=== PATIENT | male | born 1970 | race Caucasian/White ===

== ENCOUNTER 2020-10-27 12:42 | Inpatient (IN) | payer BC, OTHER ==
[~2020-10-27] VITALS: Ht 182.9 cm; Wt 108.9 kg
[2020-10-27 12:53] VITALS: BP 146/73
[2020-10-27 12:58] LABS: URINE BILIRUBIN NEGATIVE (Negative); URINE BLOOD TRACE (Negative); URINE CLARITY CLEAR; URINE COLOR YELLOW; URINE GLUCOSE-RANDOM* NEGATIVE (Negative); URINE KETONES 2+ (Negative); URINE LEUKOCYTES-REFLEX NEGATIVE (Negative); URINE NITRITE-REFLEX NEGATIVE (Negative); URINE PROTEIN (DIPSTICK) TRACE (Negative); URINE SPECIFIC GRAVITY >= 1.030 (1.005-1.035)
[2020-10-27 13:18] LABS: ABSOLUTE NEUTROPHILS 5.9 thou/uL (1.4-8.2); BASOPHILS 0.2 % (0.0-2.0); EOSINOPHILS 0.3 % (0.0-3.0); HEMATOCRIT 42.7 % (42.0-52.0); HEMOGLOBIN 14.6 gm/dL (14.0-18.0); LYMPHOCYTES 13.1 % (24.0-44.0); MCH 31.2 pg (26.0-34.0); MCHC 34.3 g/dL (28.0-37.0); MONOCYTES 5.3 % (1.0-8.0); PLATELET COUNT 271 thou/uL (150-400); POLYS 81.1 % (36.0-66.0); RBC 4.69 mil/uL (4.50-6.00); RDW 12.6 % (10.5-14.5); WBC 7.2 thou/uL (4.0-11.0)
[2020-10-27 13:33] LABS: CALCIUM 9.2 mg/dL (8.5-10.1); CREATININE 1.2 mg/dL (0.7-1.3)
[2020-10-27 13:39] LABS: ALBUMIN 3.9 g/dL (3.4-5.0); TOTAL PROTEIN 8.1 g/dL (6.4-8.2)
--- NOTE | 2020-10-27 14:56 | EKG ---
[address] [place] [address] ELECTROCARDIOGRAM REPORT Name: MARIEDEANDRE Em Room #: REG Avani#: [id number] Admission: 10/27/20 Attend Phys: Discharge: Date of : 70 Report #: [id number] [facility] ED Test Date: 2020-10-27 Test Time: 13:28:09 Pat Name: DEANDRE SALAZAR Department: Room: Gender: M Real Estate Transaction Coordinator: : 1970 Requested By: Danielle Norwood Order Number: [id number] MD: Raúl Corona Measurements Intervals [place] Rate: 52 P: 46 RI: 178 QRS: 21 QRSD: 89 T: 31 QT: 430 QTc: 400 Interpretive Statements Sinus rhythm Abnormal R-wave progression, early transition No previous ECG available for comparison Electronically Signed On 10-27-2020 14:56:00 CDT by Raúl Corona [email or web address] <ELECTRONICALLY SIGNED> By: Raúl Corona MD, [facility] 10/27/20 1456 1328 1328 Raúl Corona MD, FACC /EPI
[2020-10-27 15:29] VITALS: BP 146/73
--- NOTE | 2020-10-27 16:02 | NUR ---
ITCHING S/P ROCEPHIN INFUSION
[2020-10-27 17:20] VITALS: BP 112/70
--- NOTE | 2020-10-27 18:08 | NUR ---
ASSUMED PT CARE FROM DAY NURSE AT 1720. PT IS ALERT & ORIENTED X4. PT HAS IV SITE ON R AC AND L HAND. CALLED DR TO CLARIFY DIET, IV FLUID AND MEDICATION ORDER AND PLACED AN ORDERED PER MD REQUEST. PT ON THE BED, BED ON THE LOWEST POSITION, SIDE RAILS UP, CALL LIGHT WITHIN REACH. WILL CONTINUE TO MONITOR PT. FOLLOW POC. ENDORSE NIGHT NURSE.
[2020-10-27 19:58] VITALS: BP 100/63
--- NOTE | 2020-10-28 07:37 | NUR ---
RECEIVED CARE OF THIS PATIENT AT 1900. PATIENT ALERT AND ORIENTED X4. UP WITH SBA ONLY. IV PATENT IN LH WITH FLUIDS INFUSING. NPO SINCE NM FOR SURGERY TODAY. SLEPT MOST OF NIGHT. DENIES PAIN. C/O NAUSEA, WANTED TO WAIT UNTIL AFTER EATING TO SEE IF HE NEEDED MED FOR IT. DID NOT NEED IT.
[2020-10-28 07:57] LABS: HEMATOCRIT 40.8 % (42.0-52.0); HEMOGLOBIN 13.6 gm/dL (14.0-18.0); MCH 30.7 pg (26.0-34.0); MCHC 33.4 g/dL (28.0-37.0); MCV 91.7 fL (80.0-100.0); RBC 4.44 mil/uL (4.50-6.00); WBC 7.7 thou/uL (4.0-11.0)
[2020-10-28 07:59] VITALS: BP 114/76
[2020-10-28 08:13] LABS: CALCIUM 8.2 mg/dL (8.5-10.1); CREATININE 0.9 mg/dL (0.7-1.3); POTASSIUM 3.9 mmol/L (3.5-5.1); TOTAL BILIRUBIN 0.7 mg/dL (0.2-1.0); TOTAL PROTEIN 6.4 g/dL (6.4-8.2)
--- NOTE | 2020-10-28 12:32 | NUR ---
Received awake on bed. Due medications given as prescribed. On room air. Vital signs stable. On nothing per orem- pt informed and aware; mouth swabs provided. On MS, not on telemetry; no complains and signs of chest pain, crushing sensation and heaviness. Continent of bowel and bladder, able to go to the toilet independently. With D51/2NS at 125cc/hr, infusing well at L hand; with SL at R AC. Pt scheduled for lap nancy today, verified with pre-op nurse- pt scheduled at 1600- pt updated. Pt seen and examined by Dr Templeton- IV changed to LR as ordered. Complained of pain, due PRN pain meds given as prescribed. Visited by his , update given. Pre-op nurse called this PM, procedure might be earlier than scheduled; report given- patient and updated re: change in time. To continue monitoring patient.
--- NOTE | 2020-10-28 13:03 | NUR ---
ASSESSMENT: CM REVIEWED CHART AND MET WITH PATIENT AND HIS AT THE BEDSIDE. PT IS ALERT AND ORIENTED X4. PT WAS ADMITTED WITH ABDOMINAL PAIN AND IS TO HAVE A LAP EMELY. PT REPORTS LIVING IN A HOUSE WITH HIS . PT REPORTS HAVING A FEW STEPS TO ENTER BUT REPORTS BEING FULLY INDEPENDENT WITH ADLS AND AMBULATION. PT DENIES HAVING ANY PAST OF HH. PT REPORTS HE DOES NOT HAVE A PCP BUT DECLINES THE NEED FOR PCP REFERRALS. CM DISCUSSED ROLE. PT DOES NOT ANTICIPATE HAVING ANY NEEDS FROM CM. CM WILL CONTINUE TO FOLLOW TO ASSIST NEEDED.
[2020-10-28 17:54] VITALS: BP 143/91
[2020-10-28 18:20] VITALS: BP 121/75
[2020-10-28 19:36] VITALS: BP 139/84
--- NOTE | 2020-10-29 00:53 | NUR ---
ASSESSMENT COMPLETED. PT HAS ABDOMINAL LAPSITES X 7, LOOKING OKAY.HE HAS BEEN ABLE TO STAND BY THE BEDSIDE AND USE BSC, PT TOLERATING CLEAR LIQUIDS FINE.AFEBRILE. ON ROOM AIR AND IN NO DISTRESS.
[2020-10-29 04:19] VITALS: BP 106/66
[2020-10-29 05:26] LABS: HEMATOCRIT 40.1 % (42.0-52.0); HEMOGLOBIN 13.4 gm/dL (14.0-18.0); MCH 30.9 pg (26.0-34.0); MCHC 33.3 g/dL (28.0-37.0); MCV 92.7 fL (80.0-100.0); RBC 4.33 mil/uL (4.50-6.00); WBC 11.8 thou/uL (4.0-11.0)
[2020-10-29 05:35] LABS: ALBUMIN 3.1 g/dL (3.4-5.0); CALCIUM 8.5 mg/dL (8.5-10.1); CREATININE 1.1 mg/dL (0.7-1.3); POTASSIUM 4.1 mmol/L (3.5-5.1); TOTAL BILIRUBIN 1.4 mg/dL (0.2-1.0); TOTAL PROTEIN 6.7 g/dL (6.4-8.2)
[2020-10-29 08:30] VITALS: BP 98/64
[2020-10-29] MEDS ORDERED: CIPROFLOXACIN500 M1 PO (08:40)
[2020-10-29] MEDS ORDERED: FLAGYL500 M1 PO (08:40)
[2020-10-29] MEDS ORDERED: TYLENOL325 MG PO (08:41)
[2020-10-29] MEDS ORDERED: OXYCODONE HCL10 MG PO (08:41)
[2020-10-29] MEDS ORDERED: IBUPROFEN 200200 M1 PO (08:41)
[2020-10-29] MEDS ORDERED: COLACE 100 MG100 MG PO (08:42)
[2020-10-29] MEDS ORDERED: MIRALAX17 GM PO (08:42)
--- NOTE | 2020-10-29 09:19 | NUR ---
ASSUMED PT CARE THIS AM. PT IS ALERT & ORIENTED X4. PT HAS IV SITE ON R AC AND L HAND RUNNING LR @125ML/HR. INFORMED DR THAT PT TOLERATED DIET AND ADVANCE DIET PER ORDERED. PT HAS LAP EMELY YESTERDAY WITH 7 LAP SITE. PT TOLERATED MEDICATION AND DIET WELL THIS AM. PT C/O OF PAIN AND GIVEN PAIN MEDICATION PER PT REQUEST. PT DENIES NAUSEA AND VOMITING. PT ON THE BED, BED ON THE LOWEST POSITION, SIDE RAILS UP, CALL LIGHT WITHIN REACH. WILL CONTINUE TO MONITOR PT. FOLLOW POC.
[2020-10-29 11:44] VITALS: BP 98/64
--- NOTE | 2020-10-29 12:51 | NUR ---
ON-GOING ASSESSMENT: CM REVIEWED CHART. PT HAS ORDERS TO DISCHARGE HOME TODAY WITH NO NEEDS. CASE CLOSED.
--- NOTE | 2020-11-02 18:06 | PATH ---
[facility] [address] [place] [address] PATHOLOGY RPT PROCEDURE Name: MARIEDEANDRE T Room #: 447-P [facility] M.R.#: [id number] Admission: 10/27/20 Date of : 70 Discharge: 10/29/20 Report #: [id number] Path Case #: [id number] [facility] Accession Number: [id number] . 01 Material submitted: . PART A: gallbladder - GALLBLADDER PART B: gallbladder - CHOLEDOCHOLITHIASIS . 01 Clinical history: . LAPAROSCOPIC CHOLECYSTECTOMY CHOLECYSTITIS . 02 Diagnosis: A. Gallbladder, cholecystectomy: - Acute and chronic cholecystitis with necrosis and granulation tissue. - Negative for malignancy. . B. Calculi, "choledocholithiasis": - Multiple brown calculi measuring 1.0 x 0.8 x 0.4 cm in total aggregate. - Specimen submitted for gross examination only . (LAKSHMI:damian; 10/30/2020) MBR 10/30/2020 1836 Local . 02 Electronically signed: . Saulo Romero DO, Pathologist NPI- [id number] . 01 Gross description: . A. Fixative: Formalin Labeled: Gallbladder Specimen received: Previously opened gallbladder Dimensions: 6.4 x 2.8 x 1.4 cm Serosa: [place]-marc, ragged Lymph node: Not identified Mucosa: Velvety, pink-marc Average wall thickness: Up to 0.2 cm Calculi: Not identified Abnormalities: None identified . Saw Runner body, fundus, and the cystic duct margin in cassette A1. . B. The specimen is received in formalin, labeled "Deandre Salazar, choledocholithiasis". Received on a segment of wire are multiple light brown calculi measuring 1.0 x 0.8 x 0.4 cm in aggregate dimensions. A gross photograph is taken. Sections are not submitted. (CAA; 10/29/2020) [place] [address] PATHOLOGY RPT PROCEDURE Name: DEANDRE SALAZAR Room #: 447-P [facility] .R.#: [id number] Admission: 10/27/20 Date of : 70 Discharge: 10/29/20 Report #: [id number] Path Case #: [id number] QAC/QAC 10/29/2020 1701 Local . 02 Pathologist provided ICD-10: K81.2 . 02 CPT . 661938, [id number] Specimen Comment: A courtesy copy of this report has been sent to [phone] Specimen Comment: Report sent to Specimen Comment: A duplicate report has been generated due to demographic updates. Performed at: [facility] [address] [id number] MD Carrington Ruiz MD Phone: [phone] Performed at: [address] [id number] MD Francisco J Uriarte MD Phone: [phone]
== END 2020-10-29 16:45 | disposition home or self-care (01) | DRG 419 ==
LOC: ER 12:42 → EROBS 15:14 → 4S 15:14
PROVIDERS: Physician Assistant; Surgery; ADMIT Surgery; ATTEND Surgery
PROC: 0FT44ZZ Resection of Gallbladder, Percutaneous Endoscopic Approach (ICD-10-PCS; principal; 2020-10-28)
PROC: BF121ZZ Fluoroscopy of Gallbladder using Low Osmolar Contrast (ICD-10-PCS; principal; 2020-10-28)
PROC: 0FC94ZZ Extirpation of Matter from Common Bile Duct, Percutaneous Endoscopic Approach (ICD-10-PCS; principal; 2020-10-28)
DX: K80.42 Calculus of bile duct with acute cholecystitis without obstruction (principal); K83.8 Other specified diseases of biliary tract; Z20.822 Contact with and (suspected) exposure to COVID-19; Z88.0 Allergy status to penicillin; Z88.8 Allergy status to other drugs, medicaments and biological substances; Z87.442 Personal history of urinary calculi; Z79.899 Other long term (current) drug therapy
CPT/HCPCS: 10195; 50010; 50411; 50555; 50558; 51297; 51489; 52265; 52266; 53307; 53310; 53312; 54022; 54118; 55245; 56462; 56525; 56526; 56674; 58534; 58574

== ENCOUNTER 2020-11-04 16:13 | Emergency (ER) | payer BC, OTHER ==
[~2020-11-04] VITALS: Ht 182.9 cm; Wt 106.6 kg
[~2020-11-04 16:13] MED LIST: CIPROFLOXACIN500 M1 PO; COLACE 100 MG100 MG PO; FLAGYL500 M1 PO; IBUPROFEN 200200 M1 PO; MIRALAX17 GM PO; OXYCODONE HCL10 MG PO; TYLENOL325 MG PO
[2020-11-04 16:50] LABS: BASOPHILS 0.6 % (0.0-2.0); EOSINOPHILS 2.8 % (0.0-3.0); HEMATOCRIT 42.6 % (42.0-52.0); HEMOGLOBIN 14.2 gm/dL (14.0-18.0); MCH 30.8 pg (26.0-34.0); MCHC 33.2 g/dL (28.0-37.0); MCV 92.6 fL (80.0-100.0); MONOCYTES 7.6 % (1.0-8.0); PLATELET COUNT 331 thou/uL (150-400); RDW 12.5 % (10.5-14.5); WBC 6.4 thou/uL (4.0-11.0)
[2020-11-04 16:54] LABS: ANION GAP 5 mmol/L (7-16); BUN 17 mg/dL (7-18); CALCIUM 9.2 mg/dL (8.5-10.1); CHLORIDE 103 mmol/L (98-107); CO2 29 mmol/L (21-32); CREATININE 1.2 mg/dL (0.7-1.3); GLUCOSE 125 mg/dL (74-106); POTASSIUM 4.1 mmol/L (3.5-5.1); SODIUM 137 mmol/L (136-145)
[2020-11-04 17:02] LABS: TROPONIN-I <0.06 ng/mL (<0.06)
[2020-11-04 19:23] VITALS: BP 122/80
--- NOTE | 2020-11-05 08:11 | EKG ---
[place] [address] [facility] [place] [address] ELECTROCARDIOGRAM REPORT Name: MARIEDEANDRE Em Room #: DEP Avani#: [id number] Admission: 11/04/20 Attend Phys: Discharge: 11/04/20 Date of : 70 Report #: [id number] [facility] ED Test Date: 2020-11-04 Test Time: 16:23:50 Pat Name: DEANDRE SALAZAR Department: Room: Gender: Pharmacy Student: CARROLL : 1970 Requested By: Ulysses Alexander Order Number: [id number] MD: Madi Tinoco Measurements Intervals [place] Rate: 86 P: 44 [place]: 164 QRS: 24 QRSD: 86 T: 35 QT: 341 QTc: 408 Interpretive Statements Sinus rhythm Compared to ECG 10/27/2020 13:28:09 Myocardial infarct finding now present Electronically Signed On 11-05-2020 8:11:12 CDT by Madi Tinoco [email or web address] <ELECTRONICALLY SIGNED> By: Madi Tinoco MD 11/05/20810 1623 1623 MD JIE Orta
== END 2020-11-04 19:24 | disposition home or self-care (01) ==
LOC: ER 16:13
PROVIDERS: Emergency Medicine
DX: R06.00 Dyspnea, unspecified (principal); Z88.1 Allergy status to other antibiotic agents; Z88.0 Allergy status to penicillin; Z87.442 Personal history of urinary calculi; Z90.49 Acquired absence of other specified parts of digestive tract

== ENCOUNTER 2020-11-30 11:16 | Emergency (ER) | payer BC, OTHER ==
[~2020-11-30] VITALS: Ht 185.4 cm; Wt 108.9 kg
[2020-11-30 11:39] VITALS: BP 118/87
[2020-11-30] MEDS ORDERED: MOBIC7.5 MG PO (11:58)
[2020-11-30] MEDS ORDERED: ZANAFLEX4 MG PO (11:58)
== END 2020-11-30 12:13 | disposition home or self-care (01) ==
LOC: ER 11:16
DX: G56.01 Carpal tunnel syndrome, right upper limb (principal); M79.18 Myalgia, other site; M77.8 Other enthesopathies, not elsewhere classified; Z88.1 Allergy status to other antibiotic agents; Z88.0 Allergy status to penicillin; Z87.442 Personal history of urinary calculi; Z90.49 Acquired absence of other specified parts of digestive tract

== ENCOUNTER 2021-03-15 12:39 | Emergency (ER) | payer BC, OTHER ==
[~2021-03-15] VITALS: Ht 182.9 cm; Wt 113.4 kg
[~2021-03-15 12:39] MED LIST changes: +MOBIC7.5 MG PO; +ZANAFLEX4 MG PO
[2021-03-15 13:04] LABS: ABSOLUTE NEUTROPHILS 4.1 thou/uL (1.4-8.2); BASOPHILS 0.4 % (0.0-2.0); HEMATOCRIT 43.6 % (42.0-52.0); HEMOGLOBIN 14.4 gm/dL (14.0-18.0); LYMPHOCYTES 23.3 % (24.0-44.0); MCV 90.8 fL (80.0-100.0); MONOCYTES 9.1 % (1.0-8.0); PLATELET COUNT 259 thou/uL (150-400); POLYS 65.2 % (36.0-66.0); RDW 12.9 % (10.5-14.5); WBC 6.3 thou/uL (4.0-11.0)
[2021-03-15 13:11] LABS: URINE BILIRUBIN NEGATIVE (Negative); URINE BLOOD 2+ (Negative); URINE CLARITY CLEAR; URINE COLOR YELLOW; URINE GLUCOSE-RANDOM* NEGATIVE (Negative); URINE KETONES NEGATIVE (Negative); URINE LEUKOCYTES-REFLEX NEGATIVE (Negative); URINE NITRITE-REFLEX NEGATIVE (Negative); URINE PROTEIN (DIPSTICK) NEGATIVE (Negative); URINE UROBILINOGEN 0.2 E.U./dl (0.2-1.0)
[2021-03-15 13:12] LABS: CALCIUM 8.8 mg/dL (8.5-10.1); CREATININE 1.3 mg/dL (0.7-1.3); POTASSIUM 4.2 mmol/L (3.5-5.1)
[2021-03-15 13:59] LABS: BACTERIA-REFLEX 1-9 Few /HPF (None Seen); MUCUS >6 Heavy strn/LPF (None Seen); SQUAMOUS 0-3 Few /LPF (0-3); URINE RBC 3-10 Few /HPF (NONE SEEN); URINE WBC-REFLEX 0-5 Rare /HPF (0-5)
[2021-03-15 14:05] LABS: ALBUMIN 3.8 g/dL (3.4-5.0); DIRECT BILIRUBIN 0.1 mg/dL (<0.1-0.2); TOTAL BILIRUBIN 0.7 mg/dL (0.2-1.0); TOTAL PROTEIN 7.6 g/dL (6.4-8.2)
[2021-03-15 14:31] VITALS: BP 128/69
[2021-03-15] MEDS ORDERED: FLOMAX0.4 MG PO (14:31)
[2021-03-15] MEDS ORDERED: HYDROCODON-ACE1 EAC7 PO (14:31)
== END 2021-03-15 14:31 | disposition home or self-care (01) ==
LOC: ER 12:39
PROVIDERS: Emergency Medicine; Nurse Practitioner
DX: R10.32 Left lower quadrant pain (principal); Z88.1 Allergy status to other antibiotic agents; Z88.0 Allergy status to penicillin; Z90.49 Acquired absence of other specified parts of digestive tract; Z87.442 Personal history of urinary calculi